=== PATIENT | female | born 1985 | race Caucasian/White ===

== ENCOUNTER 2022-02-24 19:10 | Inpatient (IN) | payer BC ==
[~2022-02-24] VITALS: Ht 157.5 cm; Wt 75.8 kg
[2022-02-24] MEDS: LR 1,000 ML IV SCH (03:00)
[2022-02-24 19:19] VITALS: BP 119/76
[2022-02-24] MEDS ORDERED: ACET325C5 PO (19:21)
[2022-02-24] MEDS ORDERED: LACTATED RINGER'S 1000 ML IV STA (19:44)
[2022-02-24] MEDS ORDERED: ceFAZolin SOD 2 GM in IV 1 EA IV ONE (19:45)
[2022-02-24] MEDS ORDERED: LR 1,000 ML IV SCH ×2 (19:45→21:30)
[2022-02-24] MEDS ORDERED: BICITRA 30ML SOLN UDC PO ONE (19:45)
[2022-02-24] MEDS ORDERED: AZITHROMYCIN INJ 500 MG, VIAL MATE ADAPTER 1 EACH in NS 250 ML IV ONE (19:45)
[2022-02-24] MEDS ORDERED: dexameTHASONE 4 MG/ML 1ML VIAL (J1100 PER 1MG) As Ordered ONE (20:04)
[2022-02-24] MEDS ORDERED: MORPHINE PRES-FREE INJ 10 MG/10 ML VIAL As Ordered ONE (20:04)
[2022-02-24] MEDS ORDERED: METOCLOPRAMIDE INJ 10MG/2ML VIAL (J2765 PER 1) As Ordered ONE (20:04)
[2022-02-24] MEDS ORDERED: OXYTOCIN 30 UNITS IN 0.9% NaCl 500ML IV BAG (J2590) As Ordered ONE ×2 (20:04→22:14)
[2022-02-24] MEDS ORDERED: ONDANSETRON 4MG 2ML VIAL As Ordered ONE (20:04)
[2022-02-24] MEDS ORDERED: ACETAMINOPHEN 1000MG 100ML IV BTL (OFIRMEV) (J0131 PER 10MG) As Ordered ONE (20:04)
[2022-02-24] MEDS ORDERED: KETOROLAC 60MG 2ML VIAL As Ordered ONE (20:04)
[2022-02-24 20:06] LABS: HEMATOCRIT 34.3 % (36.0-47.0); HEMOGLOBIN 11.7 g/dl (12.0-15.5); MEAN CORPUSCULAR HEMOGLOBIN 30.2 pg (27.0-33.0); MEAN CORPUSCULAR HGB CONC 34.1 g/dl (32.0-36.5); MEAN CORPUSCULAR VOLUME 88.6 fl (80.0-96.0); PLATELET COUNT, AUTOMATED 163 10^3/uL (150-450); RED BLOOD COUNT 3.87 10^6/uL (4.00-5.40); WHITE BLOOD COUNT 9.4 10^3/uL (4.0-10.0)
[2022-02-24 20:17] VITALS: BP 129/65
[2022-02-24] MEDS ORDERED: PHENYLephrine 500MCG 5ML (100MCG/ML) SYRINGE As Ordered ONE ×2 (20:55→21:01)
[2022-02-24] MEDS ORDERED: ePHEDrine SULFATE 25 MG/5 ML(5MG/ML) SYRINGE As Ordered ONE (20:56)
[2022-02-24] MEDS ORDERED: NALOXONE INJ 0.4MG/1ML VIAL (J2310 PER 1MG) IV PRN ×2 (21:30)
[2022-02-24] MEDS ORDERED: fentaNYL 100 MCG/2 ML INJECTION IV PRN (21:30)
[2022-02-24] MEDS ORDERED: SLF 3 ML SYR IV SCH (21:30)
[2022-02-24] MEDS ORDERED: MEPERIDINE INJ 25 MG/ML VIAL (J2175) IV PRN (21:30)
[2022-02-24] MEDS ORDERED: ONDANSETRON 4MG 2ML VIAL IV PRN ×2 (21:30→21:45)
[2022-02-24] MEDS ORDERED: METOCLOPRAMIDE INJ 10MG/2ML VIAL (J2765 PER 1) IV PRN (21:30)
[2022-02-24] MEDS ORDERED: diphenhydrAMINE 50MG/ML VIAL (J1200) IV PRN (21:30)
[2022-02-24] MEDS ORDERED: oxyCODONE 5MG TAB PO PRN (21:30)
[2022-02-24] MEDS ORDERED: **NOTE PATIENT COMMENT** MISC XX SCH (21:30)
[2022-02-24 21:43] VITALS: BP 104/51
[2022-02-24] MEDS ORDERED: SIMETHICONE 80MG CHEW TAB PO PRN (21:45)
[2022-02-24] MEDS ORDERED: OXYTOCIN DRIP 30 UNITS in IV 1 EA IV SCH (21:45)
[2022-02-24] MEDS ORDERED: RHOGAM 300 MCG (1500 IU) INJ (J2790) IM SCH (21:45)
[2022-02-24] MEDS ORDERED: PERCOCET 5MG/325MG TAB PO PRN ×2 (21:45)
[2022-02-24] MEDS ORDERED: OXYC1TAB23 PO (22:46)
[2022-02-24] MEDS ORDERED: IBUP-1022 PO (22:47)
[2022-02-24 23:00] VITALS: BP 107/55
[2022-02-24 23:30] VITALS: BP 105/56
[2022-02-25] VITALS (9 sets, daily range): BP systolic 98–112; BP diastolic 53–66
[2022-02-25] MEDS: DOCUSATE SODIUM 100MG CAPSULE PO PRN ×2 (00:26→21:39)
[2022-02-25] MEDS: KETOROLAC 30 MG/ML 1ML VIAL IV SCH ×3 (02:20→14:36)
[2022-02-25 07:19] LABS: HEMATOCRIT 32.3 % (36.0-47.0); HEMOGLOBIN 11.1 g/dl (12.0-15.5); MEAN CORPUSCULAR HEMOGLOBIN 30.8 pg (27.0-33.0); MEAN CORPUSCULAR HGB CONC 34.4 g/dl (32.0-36.5); MEAN CORPUSCULAR VOLUME 89.7 fl (80.0-96.0); PLATELET COUNT, AUTOMATED 172 10^3/uL (150-450); WHITE BLOOD COUNT 10.9 10^3/uL (4.0-10.0)
[2022-02-25] MEDS: PRENATAL VITAMINS CHEWABLE TABLET PO SCH (08:01)
[2022-02-25] MEDS: LR 1,000 ML IV SCH ×3 (08:02→21:45)
[2022-02-25] MEDS: IBUPROFEN 800 MG TAB PO SCH (21:39)
[2022-02-26 02:00] VITALS: BP 105/55
[2022-02-26] MEDS: IBUPROFEN 800 MG TAB PO SCH ×3 (05:19→22:04)
[2022-02-26 06:00] VITALS: BP 96/57
[2022-02-26] MEDS: PRENATAL VITAMINS CHEWABLE TABLET PO SCH (08:18)
[2022-02-26] MEDS ORDERED: MEASLES,MUMPS,RUBELLA VACCINE INJ (MMR-II) (90707) SC.IMMUN ONE (09:00)
[2022-02-26 09:56] VITALS: BP 116/66
[2022-02-26 18:00] VITALS: BP 106/64
[2022-02-27 06:00] VITALS: BP 102/51
[2022-02-27] MEDS: IBUPROFEN 800 MG TAB PO SCH (06:01)
[2022-02-27] MEDS ORDERED: INFLUENZA QUADRIVALENT PF VACCINE 0.5ML SYRINGE IM.IMMUN ONE (09:00)
[2022-02-27] MEDS: PRENATAL VITAMINS CHEWABLE TABLET PO SCH (09:08)
== END 2022-02-27 12:28 | disposition home or self-care (01) | DRG 540 ==
LOC: M LDI 19:10 → M OBS 22:48
PROVIDERS: ADMIT Specialist; ATTEND Specialist
PROC: 10D00Z1 Extraction of Products of Conception, Low, Open Approach (ICD-10-PCS; principal; 2022-02-24 20:38)
DX: O42.013 Preterm premature rupture of membranes, onset of labor within 24 hours of rupture, third trimester (principal); O60.14X0 Preterm labor third trimester with preterm delivery third trimester, not applicable or unspecified; Z37.0 Single live birth; Z3A.35 35 weeks gestation of pregnancy; O34.211 Maternal care for low transverse scar from previous cesarean delivery